=== PATIENT | female | born 1960 | race Caucasian/White ===

== ENCOUNTER → 2016-10-23 | Outpatient (CLI) | payer BC ==
[~2016-10-23] MED LIST: ACET-785 PO; AMLO5TAB2 PO; ASPI-917 PO; CIPR-212 PO; HYDR25TA PO; IOHEXOL 300 MG/ML 100ml INJECTION ONE; METF10002 PO; METO25TA6 PO; NORMAL SALINE 100 ML ONE; ROSU40TA PO; SALINE FLUSH 10ml SYRINGE ONE; [UNRECOGNIZED DRUG - CODE] PO; [UNRECOGNIZED DRUG - CODE] PO
[2016-10-23 13:25] LABS: BASOPHILS % (AUTO) 0.2 % (0-2); EOSINOPHILS # (AUTO) 0.2 T/MM3 (0-0.5); EOSINOPHILS % (AUTO) 1.5 % (0-4); HCT - HEMATOCRIT 40.8 % (36-46); HGB - HEMOGLOBIN 13.5 GM/DL (12-16); IMMATURE GRANULOCYTE # (AUTO) 0.03 T/MM3 (0.00-0.03); IMMATURE GRANULOCYTE % (AUTO) 0.3 % (0.0-0.5); LYMPHOCYTES # (AUTO) 2.7 T/MM3 (1-4.8); LYMPHOCYTES % (AUTO) 23.4 % (23-45); MEAN CORPUSCULAR HGB 29.3 UUG (26-34); MEAN CORPUSCULAR HGB CONC(MCHC 33.1 GM/DL (31-37); MEAN CORPUSCULAR VOLUME 88.7 UM3 (80-100); MEAN PLATELET VOLUME 9.3 UM3 (9.4-12.4); MONOCYTES # (AUTO) 0.6 T/MM3 (0-0.8); MONOCYTES % (AUTO) 4.8 % (0-9.0); NEUTROPHILS #(AUTO)-ABSOLUTE 8.2 T/MM3 (1.8-7.7); NEUTROPHILS % (AUTO) 69.8 % (33-66); WBC - WHITE BLOOD COUNT 11.7 T/MM3 (4.5-11.0)
[2016-10-23 13:34] LABS: ALBUMIN 4.9 G/DL (3.5-5.0); ALKALINE PHOSPHATASE 57 U/L (38-126); ALT (SGPT) 36 U/L (9-52); ANION GAP 15 MEQ/L (5-15); AST (SGOT) 16 U/L (14-36); BUN/CREATININE RATIO 15 RATIO (6-26); CALCIUM 10.4 MG/DL (8.4-10.2); CHLORIDE 101 MEQ/L (98-107); CO2 - CARBON DIOXIDE 29 MEQ/L (22-30); CREATININE 0.6 MG/DL (0.7-1.2); GLOMERULAR FILTRATION RATE 104; GLUCOSE 106 MG/DL (65-110); POTASSIUM 3.7 MEQ/L (3.6-5); SODIUM 145 MEQ/L (134-144); TOTAL PROTEIN 7.4 G/DL (6.3-8.2)
[2016-10-23 13:57] LABS: LIPASE 68 U/L (23-300)
--- NOTE | 2016-10-23 16:01 | DI ---
Indication: ITS.REASON: R10.12 LUQ ABD PAIN; K57.92 DIVERTICULITIS; 1210.[address] ABD/PELVIS W/CONTRAST ONLY: Comparison: None Technique: Patient scanned from above the diaphragm to below the pubic symphysis after 100 cc Omni 300 intravenous contrast as well as oral contrast. Dose reduction imaging technology is used. Reformatted sagittal and coronal images are provided. Findings: Heart size is unremarkable. Minimal linear density seen in the lung bases could represent either scarring or atelectasis. No significant consolidation, mass or pleural effusion is identified. Liver, gallbladder, biliary tree and common duct are normal. Pancreas is unremarkable. Spleen is unremarkable. Adrenal glands are unremarkable. Kidneys excrete the contrast in a similar pattern. The left kidney shows a small under 1 cm cyst extending off the medial posterior border. Retroperitoneum is unremarkable. Patient showed some inflammatory changes in the descending colon consistent with diverticulitis. No significant free air or free fluid seen. Bladder contour is unremarkable. No additional acute findings appreciated in the pelvis. Reformatted imaging is demonstrating no acute bony findings. Impression: 1. Acute diverticulitis in the mid descending colon with fairly extensive diverticulosis involving the remainder of the descending and sigmoid colon. No focal point of obstruction, free air or free fluid identified. No focal abscess seen. 2. No additional upper abdominal abnormality appreciated. 3. Findings were directly called to ordering clinician's office when study provided. .
== END ==
LOC: IMA 13:07
PROVIDERS: ATTEND Physician Assistant
DX: R10.12 Left upper quadrant pain (principal); K57.32 Diverticulitis of large intestine without perforation or abscess without bleeding; R10.32 Left lower quadrant pain; R11.2 Nausea with vomiting, unspecified
CPT/HCPCS: 36415; 74177; 80053; 82150; 83690; 85025; J7050; Q9967